=== PATIENT | male | born 1945 | race Caucasian/White ===

== ENCOUNTER → 2019-04-14 18:52 | Outpatient (CLI) | payer MEDICARE, BC | END | disposition home or self-care (01) | LOC: D.LABREF 18:52 | PROVIDERS: ATTEND Orthopaedic Surgery | DX: M17.11 Unilateral primary osteoarthritis, right knee (principal); Z11.8 Encounter for screening for other infectious and parasitic diseases ==

== ENCOUNTER 2019-04-15 12:24 | Inpatient (IN) | payer MEDICARE, BC ==
[~2019-04-15] VITALS: Ht 177.8 cm; Wt 158.8 kg
[2019-05-12] MEDS ORDERED: CARDURA4 MG PO (15:15)
[2019-05-12] MEDS ORDERED: NORMODYNE / TR200 MG PO (15:16)
[2019-05-12] MEDS ORDERED: GLIMEPIRIDE4 MG PO (15:16)
[2019-05-12] MEDS ORDERED: JANUVIA50 MG PO (15:16)
[2019-05-12] MEDS ORDERED: ZOCOR10 MG PO (15:17)
[2019-05-12] MEDS ORDERED: LISINOPRIL20 MG PO (15:17)
[2019-05-12] MEDS ORDERED: LANTUS SOL100 UNIT/1 SC (15:17)
[2019-05-12] MEDS ORDERED: VERAPAMIL ER P200 MG PO (15:18)
[2019-05-12] MEDS ORDERED: MAXZIDE 75/501 TAB PO (15:18)
[2019-05-12] MEDS ORDERED: ULTRAM50 MG PO (15:19)
[2019-05-12] MEDS ORDERED: MULTI-DAY VITAM1 TAB PO (15:32)
[2019-05-12] MEDS ORDERED: ASPIRIN EC81 M1 PO (15:32)
[2019-05-12] MEDS ORDERED: OMEGA-3100 MG PO (15:32)
[2019-05-13 11:17] LABS: BASOPHILS 0.1 % (0-2); EOSINOPHILS 1.6 % (0-7); HEMATOCRIT 40.8 % (42.0-54.0); HEMOGLOBIN 14.4 g/dL (13.5-17.5); IMMATURE GRANULOCYTES 0.3 % (0-5); LYMPHOCYTES 25.1 % (15-50); MCHC 35.3 g/dL (31.0-37.0); MCV 90.7 fL (80.0-100.0); MEAN PLATELET VOLUME 10.4 fL (7.4-10.4); MONOCYTES 9.7 % (2-11); NEUTROPHILS 63.2 % (40-80); PLATELET COUNT 209 10x3/uL (130-400); WBC 6.7 10x3/uL (4.8-10.8)
[2019-05-13 11:26] LABS: APPEARANCE CLEAR (CLEAR); COLOR STRAW (YELLOW)
[2019-05-13 11:27] LABS: BILIRUBIN NEGATIVE (NEGATIVE); GLUCOSE 100 mg/dL (NEGATIVE); KETONE NEGATIVE (NEGATIVE); NITRITE NEGATIVE (NEGATIVE); PROTEIN NEGATIVE (NEGATIVE); SPECIFIC GRAVITY 1.005 (1.005-1.020); UROBILINOGEN NORMAL (NORMAL)
[2019-05-13 11:27] LABS: CALCIUM 8.7 mg/dL (8.5-10.1); CARBON DIOXIDE 32.7 mmol/L (21.0-32.0); CREATININE - SERUM 1.7 mg/dL (0.6-1.3); POTASSIUM - SERUM 3.7 mmol/L (3.5-5.1)
[2019-05-13 11:37] LABS: APTT 31.6 SECONDS (22.8-39.4); INR 1.05 (0.85-1.17); PROTIME 13.2 SECONDS (11.6-15.0)
[2019-05-20 06:32] VITALS: BP 125/69; BMI 35.9
[2019-05-20 10:56] VITALS: BP 155/99
[2019-05-20 16:57] VITALS: BP 152/87
[2019-05-20 18:48] VITALS: BP 155/99; BMI 50.3
[2019-05-20 21:50] VITALS: BP 115/68
[2019-05-21 01:25] VITALS: BP 124/64
--- NOTE | 2019-05-21 05:00 | NUR ---
PT STILL HAS NOT VOIDED INSTRUCTED THAT REALLY NEED TO DO IN AND OUT CATH NOW STATES NO NOT GOING TO, DONT NEED TO GO IM JUST DRY. BLADDER SCAN DONE AGAIN SHOWED 393ML,
[2019-05-21 05:29] VITALS: BP 120/60
[2019-05-21 06:44] LABS: BASOPHILS 0.1 % (0-2); EOSINOPHILS 0 % (0-7); HEMATOCRIT 39.3 % (42.0-54.0); IMMATURE GRANULOCYTES 0.3 % (0-5); LYMPHOCYTES 9.3 % (15-50); MCHC 33.1 g/dL (31.0-37.0); MCV 93.8 fL (80.0-100.0); MEAN PLATELET VOLUME 10.8 fL (7.4-10.4); MONOCYTES 21.4 % (2-11); NEUTROPHILS 68.9 % (40-80); PLATELET COUNT 190 10x3/uL (130-400); RBC 4.19 10x6/uL (4.20-6.10); RDW 14.1 % (11.5-14.5); WBC 10.4 10x3/uL (4.8-10.8)
--- NOTE | 2019-05-21 06:54 | NUR ---
I have reviewed this patient and I concur with the Shift Assessment completed by the Licensed Practical Nurse today this shift.
[2019-05-21 07:07] LABS: ANION GAP 14.1 mmol/L (8-16); CALCIUM 8.1 mg/dL (8.5-10.1); CARBON DIOXIDE 26.3 mmol/L (21.0-32.0); CREATININE - SERUM 2.5 mg/dL (0.6-1.3); POTASSIUM - SERUM 4.4 mmol/L (3.5-5.1)
[2019-05-21 09:11] VITALS: BP 164/91
--- NOTE | 2019-05-21 10:30 | NUR ---
MORNING ASSESSMENT COMPLETE. SEE ASSESSMENT FLOWSHEET FOR FURTHER DETIALS. PT LYING IN BED AAO X4 TO PERSON, PLACE, TIME, AND SITUATION. DENIES FURTHER NEEDS AT THIS TIME. CL IN REACH. SIDE RAILS UP X3 FOR PT SAFETY. BED IN LOWEST POSITION. AT BEDSIDE.
[2019-05-21 10:45] VITALS: BMI 50.2
[2019-05-21 12:56] VITALS: BP 186/88
[2019-05-21 16:45] VITALS: BP 133/64
--- NOTE | 2019-05-21 20:00 | NUR ---
RESTING IN BED CPM IN USE, WOUND VAC DRESSING INTACT TO RIGHT KNEE, DENIES PAIN, URINAL GIVEN AND INSTRUCTED NEED TO TRY TO VOID HE HAS NOT VOIDED SINCE MAYS REMOVED AT 11AM, STATES I DONT NEED TO GO BUT I WILL TRY.
[2019-05-21 21:22] VITALS: BP 118/60
--- NOTE | 2019-05-21 23:30 | NUR ---
STILL HAS NOT VOIDED INSTRUCTED NEED TO DO IN AND OUT CATH STATES OH NO YOUR NOT, I DONT NEED TO GO YET. AGREED TO ALLOW BLADDER SCAN, SCANED 384ML. INSTRUCTED TO CONTINUE TO TRY AND USE URINAL,
[2019-05-22 01:15] VITALS: BP 110/58
[2019-05-22 04:50] LABS: BASOPHILS 0.1 % (0-2); EOSINOPHILS 0 % (0-7); HEMATOCRIT 32.8 % (42.0-54.0); HEMOGLOBIN 11.1 g/dL (13.5-17.5); IMMATURE GRANULOCYTES 0.3 % (0-5); MCH 31.3 pg (26.0-34.0); MCHC 33.8 g/dL (31.0-37.0); MCV 92.4 fL (80.0-100.0); MEAN PLATELET VOLUME 10.5 fL (7.4-10.4); MONOCYTES 14.8 % (2-11); NEUTROPHILS 77.8 % (40-80); RBC 3.55 10x6/uL (4.20-6.10); RDW 13.9 % (11.5-14.5)
[2019-05-22 04:57] LABS: PLATELET COUNT 143 10x3/uL (130-400); WBC 18.8 10x3/uL (4.8-10.8)
[2019-05-22 05:08] LABS: ALBUMIN 2.8 g/dL (3.4-5.0); ANION GAP 13.5 mmol/L (8-16); BILIRUBIN - TOTAL 1.55 mg/dL (0.2-1.3); CALCIUM 7.7 mg/dL (8.5-10.1); CARBON DIOXIDE 26.7 mmol/L (21.0-32.0); CREATININE - SERUM 3.5 mg/dL (0.6-1.3); POTASSIUM - SERUM 4.2 mmol/L (3.5-5.1); PROTEIN - SERUM 6.3 g/dL (6.4-8.2)
--- NOTE | 2019-05-22 06:00 | NUR ---
REQUESTED CPM BE REMOVED DUE TO HIP HURTING OFFERED TO GIVE DILAUDID FOR PAIN, REFUSED STATES JUST WANT THIS THING OFF, CPM REMOVED AFTER BEING ON FOR 15 MIN
[2019-05-22 06:04] VITALS: BP 105/52
--- NOTE | 2019-05-22 07:49 | NUR ---
PT RESTING IN BED WITH CPAP ON. EDUCATED PT ON SITTING UP ON SIDE OF BED AND NOT STAYING IN THE BED. ASSITED PT UP TO SIDE OF BED. NATHAN WONG I&O CATH PT DT NOT VOIDING SINCE YESTERDAY. 800 ML OF URINE NOTED. NATHAN BOX FSBS-60. ORANGE JUICE AND PEANUT BUTTER AND CRACKERS GIVEN. PT EATING AND DRINKING. DENIES PAIN. NO S/S OF ACUTE DISTRESS. CL IN PLACE. AT BEDSIDE
[2019-05-22 08:33] LABS: APPEARANCE SL CLDY (CLEAR); BILIRUBIN NEGATIVE (NEGATIVE); COLOR YELLOW (YELLOW); GLUCOSE 50 mg/dL (NEGATIVE); KETONE SMALL mg/dL (NEGATIVE); NITRITE NEGATIVE (NEGATIVE); PROTEIN 1+ mg/dL (NEGATIVE); SPECIFIC GRAVITY 1.015 (1.005-1.020); UROBILINOGEN NORMAL (NORMAL)
[2019-05-22 08:34] LABS: BACTERIA MODERATE /hpf (NONE SEEN); EPITHELIAL CELLS OCC /hpf (0-5); WHITE CELLS - URINE 0-5 /hpf (0-5)
[2019-05-22 08:35] LABS: AMORPHOUS SEDIMENT >1+ /lpf (NONE SEEN); GRANULAR CAST OCC /lpf (NONE SEEN); MUCUS <1+ /lpf (NONE SEEN)
[2019-05-22 08:40] VITALS: BP 117/49
[2019-05-22 12:03] VITALS: BP 103/58
--- NOTE | 2019-05-22 12:39 | NUR ---
BLADDER SCANNED 341. CALLED RENAL AND LEFT MESSAGE. PT HAS NO URGE TO URNIATE. NO S/S OF ACUTE DISTRESS. CL IN PLACE.
--- NOTE | 2019-05-22 13:03 | NUR ---
SPOKE WITH LUANNE KRISHNAMURTHY FOR RENAL WHO ORDERED CONSULT WITH DR CASAS, " IT SEEMS TO BE MORE OF A URNIARY ISSUE THAN RENAL." CALLED DR CASAS ABOUT CONSULT AND EXPLAINED THE PT WAS UNABLE TO VOID. TO FOR FC TO BE PLACED AND DR CASAS WILL BE BY TO SEE PT LATER. NO S/S OF ACUTE DISTRESS. CL IN PLACE.
[2019-05-22 13:35] VITALS: Ht 177.8 cm; Wt 158.8 kg
--- NOTE | 2019-05-22 13:36 | NUR ---
FC PLACED PER MD ORDER USING STERILE TECHNIQUE. 310 ML OF HENRY URINE NOTED IN BAD. NO S.S OF ACUTE DISTRESS. CL IN PLACE.
[2019-05-22 16:39] VITALS: BP 141/70
--- NOTE | 2019-05-22 19:05 | NUR ---
OXY 5 GIVEN PRIOR TO TRANSPORT. NO S/S OF ACUTE DISTRESS. LEFT WITH EMS AT 1840.
--- NOTE | 2019-05-22 19:11 | NUR ---
PT SITTING UP ON SIDE OF BED. REFUSED CPM. NO S/S OF ACUTE DISTRESS. CL IN PLACE.
--- NOTE | 2019-05-22 19:15 | NUR ---
RECIEVED CARE FROM DAY NURSE. LYING IN BED WITH CALL LIGHT AT SIDE. IV INFUSING TO RIGHT FA. NO NEEDS VOICED AT THIS TIME. MAYS TO GRAVITY. WOUND VAC TO RIGHT KNEE.
[2019-05-22 20:00] VITALS: BP 109/64
[2019-05-23] VITALS: BP 115/59
--- NOTE | 2019-05-23 03:00 | NUR ---
UP TO BSC. UNABLE TO HAVE BM BUT DID PASS A LARGE AMOUNT OF GAS.
--- NOTE | 2019-05-23 03:42 | NUR ---
I have reviewed this patient and I concur with the Shift Assessment completed by the Licensed Practical Nurse today this shift.
[2019-05-23 04:00] VITALS: BP 111/44
[2019-05-23 07:49] LABS: BASOPHILS 0.1 % (0-2); EOSINOPHILS 0.7 % (0-7); HEMATOCRIT 31.5 % (42.0-54.0); IMMATURE GRANULOCYTES 0.3 % (0-5); LYMPHOCYTES 8.7 % (15-50); MCH 31.5 pg (26.0-34.0); MCHC 34.9 g/dL (31.0-37.0); MEAN PLATELET VOLUME 10.1 fL (7.4-10.4); MONOCYTES 14.1 % (2-11); NEUTROPHILS 76.1 % (40-80); PLATELET COUNT 138 10x3/uL (130-400); RBC 3.49 10x6/uL (4.20-6.10); RDW 13.7 % (11.5-14.5); WBC 14.6 10x3/uL (4.8-10.8)
[2019-05-23 07:59] LABS: MCV 90.3 fL (80.0-100.0)
[2019-05-23 08:08] LABS: ALBUMIN 2.7 g/dL (3.4-5.0); ANION GAP 13.3 mmol/L (8-16); BILIRUBIN - TOTAL 1.11 mg/dL (0.2-1.3); CALCIUM 7.6 mg/dL (8.5-10.1); CARBON DIOXIDE 24.3 mmol/L (21.0-32.0); CREATININE - SERUM 3.3 mg/dL (0.6-1.3); POTASSIUM - SERUM 3.6 mmol/L (3.5-5.1); PROTEIN - SERUM 6.4 g/dL (6.4-8.2)
[2019-05-23 08:43] VITALS: BP 143/65
--- NOTE | 2019-05-23 09:16 | NUR ---
PT SITTING UP ON SIDE OF BED. ENCOURAGED PT TO USE I.S. EDUCATION GIVEN. "I UNDERSTAND" ENCOURAGED PT TO GET UP TO CHAIR TO TODAY. NO S/S OF ACUTE DISTRESS. CL IN PLACE.
[2019-05-23 12:32] VITALS: BP 169/87
[2019-05-23 16:59] VITALS: BP 143/80
--- NOTE | 2019-05-23 18:21 | NUR ---
PT RESTING IN BED. AT BEDSIDE. NO S/S OF ACUTE DISTRESS. CL IN PLACE.
--- NOTE | 2019-05-23 19:15 | NUR ---
RECIEVED CARE FROM DAY NURSE. LYING IN BED WITH CPAP IN PLACE. REPORTS NO NEEDS AT THIS TIME. CALL LIGHT AT SIDE. IV TO RIGHT FA INFUSING PER ORDER. MAYS TO GRAVITY.
[2019-05-23 20:40] VITALS: BP 141/64
--- NOTE | 2019-05-23 20:40 | NUR ---
IV IN RIGHT FA LEAKING. DC'D WITH TIP INTACT. RESITED TO RIGHT HAND. 22 GUAGE X1 STICK WITH GOOD BLOOD RETURN NOTED.
[2019-05-24 00:56] VITALS: BP 136/63
[2019-05-24 05:44] VITALS: BP 118/64
[2019-05-24 07:53] LABS: HEMATOCRIT 28.8 % (42.0-54.0); MCH 31.6 pg (26.0-34.0); MCHC 34.7 g/dL (31.0-37.0); MCV 91.1 fL (80.0-100.0); MEAN PLATELET VOLUME 11.2 fL (7.4-10.4); RBC 3.16 10x6/uL (4.20-6.10); RDW 14.4 % (11.5-14.5)
[2019-05-24 08:03] LABS: PLATELET COUNT 198 10x3/uL (130-400); WBC 10.3 10x3/uL (4.8-10.8)
[2019-05-24 08:21] LABS: EOSINOPHILS 1 % (0-7); LYMPHOCYTES 12 % (15-50); MONOCYTES 3 % (2-11); NEUTROPHILS 82 % (40-80); PLATELET ESTIMATE DECREASED
--- NOTE | 2019-05-24 08:29 | NUR ---
AAOX4. RESTING IN BED. ASSISTED PT UP WITH YOUTH CARE PROFESSIONAL AND RW TO CHAIR. PT CO OF PAIN 9/10 TO R HIP/KNEE. SHAKY, UNSTEADY GAIT NOTED. AT BEDSIDE. NO S/S OF ACUTE DISTRESS. CL IN PLACE.
[2019-05-24 09:53] LABS: ALBUMIN 2.5 g/dL (3.4-5.0); ANION GAP 12.5 mmol/L (8-16); BILIRUBIN - TOTAL 1.18 mg/dL (0.2-1.3); CALCIUM 7.8 mg/dL (8.5-10.1); CARBON DIOXIDE 26.5 mmol/L (21.0-32.0); CREATININE - SERUM 2.6 mg/dL (0.6-1.3); PROTEIN - SERUM 6.2 g/dL (6.4-8.2)
[2019-05-24 10:25] VITALS: BP 134/59
[2019-05-24 15:42] VITALS: BP 127/54
--- NOTE | 2019-05-24 18:04 | NUR ---
PT SITTING UP ON SIDE OF BED."NOT TOO CRAZY ABOUT THE FOOD". AT BEDSIDE. NO S/S OF ACUTE DISTRESS. CL IN PLACE.
--- NOTE | 2019-05-24 19:15 | NUR ---
RECEIVED CARE FROM DAY NURSE. SITTING UP ON SIDE OF BED. NO NEEDS VOICED AT THIS TIME. CALL LIGHT AT SIDE. IV INFUSING PER ORDER TO RIGHT HAND. MAYS TO GRAVITY. PREVENA WOUND VAC TO RIGHT KNEE.
[2019-05-24 21:22] VITALS: BP 155/71
[2019-05-25 01:06] VITALS: BP 118/48
--- NOTE | 2019-05-25 01:46 | NUR ---
I have reviewed this patient and I concur with the Shift Assessment completed by the Licensed Practical Nurse today this shift.
[2019-05-25 04:56] VITALS: BP 147/65
[2019-05-25 05:14] LABS: BASOPHILS 0.1 % (0-2); EOSINOPHILS 2.7 % (0-7); HEMATOCRIT 28.8 % (42.0-54.0); HEMOGLOBIN 9.8 g/dL (13.5-17.5); IMMATURE GRANULOCYTES 0.5 % (0-5); LYMPHOCYTES 9.5 % (15-50); MCH 30.8 pg (26.0-34.0); MCV 90.6 fL (80.0-100.0); MEAN PLATELET VOLUME 10.3 fL (7.4-10.4); MONOCYTES 19.9 % (2-11); NEUTROPHILS 67.3 % (40-80); PLATELET COUNT 191 10x3/uL (130-400); RBC 3.18 10x6/uL (4.20-6.10); RDW 13.3 % (11.5-14.5)
[2019-05-25 05:45] LABS: ALBUMIN 2.4 g/dL (3.4-5.0); ANION GAP 11.7 mmol/L (8-16); BILIRUBIN - TOTAL 1.17 mg/dL (0.2-1.3); CALCIUM 8.2 mg/dL (8.5-10.1); CARBON DIOXIDE 27.3 mmol/L (21.0-32.0); CREATININE - SERUM 2.2 mg/dL (0.6-1.3); PROTEIN - SERUM 6.1 g/dL (6.4-8.2)
--- NOTE | 2019-05-25 09:00 | NUR ---
[facility] AT [facility]
[2019-05-25] MEDS ORDERED: VIBRAMYCIN 100100 MG PO (09:59)
[2019-05-25] MEDS ORDERED: MIRALAX17 GM PO (10:00)
[2019-05-25 10:15] VITALS: BP 114/61
--- NOTE | 2019-05-25 11:13 | NUR ---
MORNING ASSESSMENT COMPLETE. SEE ASSESSMENT FLOWSHEET FOR FURTHER DETAILS. PT LYING IN BED AAO X4 TO [place], PLACE, TIME, AND SITUATION. DENIES NEEDS AT THSI TIME. CL IN REACH. SIDE RAILS UP X3 FOR PT SAFETY. BED IN LOWEST POSITION
--- NOTE | 2019-05-25 11:15 | NUR ---
GIVEN REPORT TO NATHAN LAURENT
--- NOTE | 2019-05-25 12:02 | MORECARE ---
CASE MANAGEMENT DISCHARGE SUMMARY PATIENT: ANDREW COOPER UNIT: [id number] ADM DATE: 05/20/19 AGE: 73 : 45 SEX: M ROOM/BED: D.2209 AUTHOR: ADRIANA LOVE PHYSICIAN: REFERRING PHYSICIAN: LENY ROBERTSON MD DATE OF SERVICE: 05/25/19 Discharge Plan Patient Name: ANDREW COOPER [facility] [facility] 1945 Planned Disposition: Home Health Service Anticipated Discharge Date: 05/25/19 Discharge Date: Expected LOS: 5 Initial Reviewer: [email or web address] Initial Review Date: 05/25/2019 Generated: 05/25/19 1:02 pm DCPIA - Discharge Planning Initial Assessment Updated by [email or web address]: Shayla Ndiaye on 05/25/19 12:01 pm * Is the patient Alert and Oriented? Yes * PCP P[facility]OT * [facility] * Preadmission Environment Home with Family * ADLs Independent * List name and contact numbers for known caregivers / representatives who currently or will assist patient after discharge: SUKUMAR TORRES, * Community resources currently utilized Home Health * Please name any agencies selected above. [place] BUT DOESNT KNOW NAME * Additional services required to return to the preadmission environment? Yes * Can the patient safely return to the preadmission environment? No * Has this patient been hospitalized within the prior 30 days at any hospital? Yes Patient Name: ANDREW COOPER Page [id number] at 1202 All edits/amendments must be made on the electronic document DICTATION DATE: 05/25/19 1202 TUBE PUSHER: MONROE 05/25/19 1202 RPT#: [id number] DC DATE: STATUS: ADM IN [facility] [address] [place] [address] END OF REPORT
--- NOTE | 2019-05-25 12:10 | MORECARE ---
CASE MANAGEMENT DISCHARGE SUMMARY PATIENT: ANDREW COOPER UNIT: [id number] ADM DATE: 05/20/19 AGE: 73 : 45 SEX: M ROOM/BED: D.2209 AUTHOR: ADRIANA LOVE PHYSICIAN: REFERRING PHYSICIAN: LENY ROBERTSON MD DATE OF SERVICE: 05/25/19 Discharge Plan Patient Name: ANDREW COOPER Facility: [facility]:[place] : 1945 Planned Disposition: Home Health Service Anticipated Discharge Date: 05/25/19 Discharge Date: Expected LOS: 5 Initial Reviewer: [email or web address] Initial Review Date: 05/25/2019 Generated: 05/25/19 1:09 pm Comments DCP- Discharge Planning Updated by [email or web address]: Shayla Ndiaye on 05/25/19 11:[address] Patient Name: ANDREW COOPER Admission Status: Elective Accout number: [id number] Admission Date: 05-20-2019 : 1945 Admission Diagnosis:UNILATERAL PRIMARY OSTEOARTHRITIS, RIGHT KNEE Attending: LENY ROBERTSON Current LOS: 5 Anticipated DC Date: 05-25-2019 Planned Disposition: Home Health Service Primary Insurance: MEDICARE A & B Discharge Planning Comments: CM MET WITH PATIENT ABOUT DC PLANNING/NEEDS. [facility] HAS HH BUT DOESN'T REMEMBER NAME. I WILL TRY TO FIND OUT, IF NOT SUCCESSFUL [facility] FOR [place] [employer] FOR DME. [facility] NEEDS WHEEL CHAIR AND BUCKET FOR BEDSIDE COMODE. CM WILL FAX DOCUMENTS OVER. I WILL FOLLOW AND ASSIST NEEDED. Talent Director: Shayla Ndiaye DCPIA - Discharge Planning Initial Assessment Updated by [id number]: Shayla Ndiaye on 05/25/19 12:01 pm * Is the patient Alert and Oriented? Yes * PCP PARROT * [facility] * Preadmission Environment Home with Family * ADLs Independent * List name and contact numbers for known caregivers / representatives who currently or will assist patient after discharge: BRIAN, SUKUMAR, * Community resources currently utilized Home Health * Please name any agencies selected above. [facility] BUT DOESNT KNOW NAME * Additional services required to return to the preadmission environment? Yes * Can the patient safely return to the preadmission environment? No * Has this patient been hospitalized within the prior 30 days at any hospital? Yes External Providers External Provider: [facility] Next Contact Date: Service Request Date: Service Type: Resolution: Reviewer: Comments: [facility] Next Contact Date: Service Request Date: Service Type: Resolution: Reviewer: Comments: Last DP export: 05/25/19 11:02 am Patient Name: ANDREW COOPER Page [phone] at 1210 All edits/amendments must be made on the electronic document DICTATION DATE: 05/25/19 120 DIRECTOR SOCIAL WELFARE: MONROE 05/25/19 1209 RPT#: [id number] DC DATE: STATUS: ADM IN [facility] [address] [place] [address] END OF REPORT
[2019-05-25 12:28] VITALS: BP 128/62
--- NOTE | 2019-05-25 13:54 | MORECARE ---
CASE MANAGEMENT DISCHARGE SUMMARY PATIENT: ANDREW COOPER UNIT: [id number] ADM DATE: 05/20/19 AGE: 73 : 45 SEX: M ROOM/BED: D.2209 AUTHOR: ADRIANA LOVE PHYSICIAN: REFERRING PHYSICIAN: LENY ROBERTSON MD DATE OF SERVICE: 05/25/19 Discharge Plan Patient Name: ANDREW COOPER Facility: [facility]:[place] : 1945 Planned Disposition: Home Health Service Anticipated Discharge Date: 05/25/19 Discharge Date: Expected LOS: 5 Initial Reviewer: [email or web address] Initial Review Date: 05/25/2019 Generated: 05/25/19 2:54 pm Comments DCP- Discharge Planning Updated by [id number]: Shayla Ndiaye on 05/25/19 11:[address] Patient Name: ANDREW COOPER Admission Status: Elective Accout number: [id number] Admission Date: 05-20-2019 : 1945 Admission Diagnosis:UNILATERAL PRIMARY OSTEOARTHRITIS, RIGHT KNEE Attending: LENY ROBERTSON Current LOS: 5 Anticipated DC Date: 05-25-2019 Planned Disposition: Home Health Service Primary Insurance: MEDICARE A & B Discharge Planning Comments: CM MET WITH PATIENT ABOUT DC PLANNING/NEEDS. [facility] HAS HH BUT DOESN'T REMEMBER NAME. I WILL TRY TO FIND OUT, IF NOT SUCCESSFUL [facility] FOR [place] [employer] FOR DME. [facility] NEEDS WHEEL CHAIR AND BUCKET FOR BEDSIDE COMODE. CM WILL FAX DOCUMENTS OVER. I WILL FOLLOW AND ASSIST NEEDED. Die Sinker Apprentice: Shayla Ndiaye DCPIA - Discharge Planning Initial Assessment Updated by [id number]: Shayla Ndiaye on 05/25/19 12:01 pm * Is the patient Alert and Oriented? Yes * PCP PARROT * [facility] * Preadmission Environment Home with Family * ADLs Independent * List name and contact numbers for known caregivers / representatives who currently or will assist patient after discharge: BRIAN, SUKUMAR, * Community resources currently utilized Home Health * Please name any agencies selected above. [facility] BUT DOESNT KNOW NAME * Additional services required to return to the preadmission environment? Yes * Can the patient safely return to the preadmission environment? No * Has this patient been hospitalized within the prior 30 days at any hospital? Yes External Providers External Provider: [facility] Next Contact Date: Service Request Date: Service Type: Resolution: Reviewer: Comments: External Provider: [facility] Next Contact Date: Service Request Date: Service Type: Resolution: Reviewer: Comments: Coverage Notice Reviewer: [email or web address] Ndiaye Notice Issued Date-Time: 05/25/2019 12:25 Notice Type: IM Discharge Notice Notice Delivered To: Patient Relationship to Patient: Critical Care Technician Name: Delivery Method: HAND - Hand Delivered Nan Days: Prior Verbal Notification: Recipient Understood Notice: Yes Recipient Signature: Yes Med Rec Note Co-signed by Attending: Coverage Notice Comment: Reviewer: [id number] Ndiaye Notice Issued Date-Time: 05/25/2019 12:25 Notice Type: Patient Choice Letter Notice Delivered To: Patient Relationship to Patient: Self Critical Care Technician Name: Delivery Method: HAND - Hand Delivered Nan Days: Prior Verbal Notification: Recipient Understood Notice: Yes Recipient Signature: Yes Med Rec Note Co-signed by Attending: Coverage Notice Comment: JULIO HAY Last DP export: 05/25/19 11:09 am Patient Name: ANDREW COOPER Page [phone] at 1354 All edits/amendments must be made on the electronic document DICTATION DATE: 05/25/19 1354 SIGN LETTERER: MONROE 05/25/19 1354 RPT#: [id number] DC DATE: STATUS: ADM IN [facility] [address] [place] [address] END OF REPORT
[2019-05-25 17:30] VITALS: BP 143/72
[2019-05-25 20:31] VITALS: BP 158/77
--- NOTE | 2019-05-25 21:00 | NUR ---
FSBS 173 5 INITS OF LANTUS GIVEN PER JAN PT REFUSED SS.
--- NOTE | 2019-05-25 21:45 | NUR ---
PT RESTING IN BED. ALERT AND ORIENTED. NO SIGNS OF DISTRESS. BREATHING EVEN AND UNLABORED. PT STATES NO PROBLEMS AT THIS TIME. BED LOWERED AND LOCKED. CALL LIGHT IN REACH. WILL CONTINUE PLAN OF CARE.
[2019-05-26 00:15] VITALS: BP 150/64
[2019-05-26 05:08] VITALS: BP 131/63
[2019-05-26 06:06] LABS: BASOPHILS 0.1 % (0-2); EOSINOPHILS 2.4 % (0-7); HEMATOCRIT 30.3 % (42.0-54.0); HEMOGLOBIN 10.2 g/dL (13.5-17.5); IMMATURE GRANULOCYTES 0.5 % (0-5); LYMPHOCYTES 12.2 % (15-50); MCH 30.5 pg (26.0-34.0); MCHC 33.7 g/dL (31.0-37.0); MCV 90.7 fL (80.0-100.0); MEAN PLATELET VOLUME 9.8 fL (7.4-10.4); MONOCYTES 19.3 % (2-11); NEUTROPHILS 65.5 % (40-80); PLATELET COUNT 209 10x3/uL (130-400); RBC 3.34 10x6/uL (4.20-6.10); RDW 13.3 % (11.5-14.5); WBC 9.2 10x3/uL (4.8-10.8)
[2019-05-26 06:07] LABS: ALBUMIN 2.6 g/dL (3.4-5.0); ANION GAP 10.7 mmol/L (8-16); BILIRUBIN - TOTAL 1.21 mg/dL (0.2-1.3); CALCIUM 8.2 mg/dL (8.5-10.1); CARBON DIOXIDE 28.3 mmol/L (21.0-32.0); PROTEIN - SERUM 6.3 g/dL (6.4-8.2)
--- NOTE | 2019-05-26 06:45 | NUR ---
I have reviewed this patient and I concur with the Shift Assessment completed by the Licensed Practical Nurse today this shift.
--- NOTE | 2019-05-26 06:54 | NUR ---
FSBS 166 PT REFUSED SS. STATED HE IS GOING HOME TODAY AND WILL GET BACK ON HIS REGULAR ORAL MEDICATIONS. THAT HE DOES NOT DO SS AT HOME.
[2019-05-26] MEDS ORDERED: HYDROCODON-ACE1 EAC2 PO (08:27)
[2019-05-26 09:13] VITALS: BP 155/63
--- NOTE | 2019-05-26 10:12 | NUR ---
MORNING ASSESSMENT COMPLETE. SEE ASSESSMENT FLOWSHEET FOR FURTHER DETAILS. PT LYING IN BED AAO X4 TO PERSON, PLACE, TIME, AND SITUATION. DENIES NEEDS AT THIS TIME. CL IN REACH. SIDE RAILS UP X3 FOR PT SAFETY. AT BEDSIDE. BED IN LOWEST POSITION.
--- NOTE | 2019-05-26 12:28 | NUR ---
PT D/C HOME. LEFT FLOOR VIA W/C. WENT OVER ALL D/C INSTRUCTIONS- PT STATES UNDERSTANDING. LEFT WITH ALL PERSONAL BELONGINGS.
--- NOTE | 2019-05-26 17:33 | MORECARE ---
CASE MANAGEMENT DISCHARGE SUMMARY PATIENT: ANDREW COOPER UNIT: [id number] ADM DATE: 05/20/19 AGE: 73 : 45 SEX: M ROOM/BED: D.2209 AUTHOR: ADRIANA LOVE PHYSICIAN: REFERRING PHYSICIAN: LENY ROBERTSON MD DATE OF SERVICE: 05/26/19 Discharge Plan Patient Name: ANDREW COOPER Facility: [facility]:[place] : 1945 Planned Disposition: Home Health Service Anticipated Discharge Date: 05/25/19 Discharge Date: 05/26/2019 Expected LOS: 5 Initial Reviewer: [email or web address] Initial Review Date: 05/25/2019 Generated: 05/26/19 6:33 pm Comments DCP- Discharge Planning Updated by [id number]: Shayla Ndiaye on 05/25/19 11:[address] Patient Name: ANDREW COOPER Admission Status: Elective Accout number: [id number] Admission Date: 05-20-2019 : 1945 Admission Diagnosis:UNILATERAL PRIMARY OSTEOARTHRITIS, RIGHT KNEE Attending: LENY ROBERTSON Current LOS: 5 Anticipated DC Date: 05-25-2019 Planned Disposition: Home Health Service Primary Insurance: MEDICARE A & B Discharge Planning Comments: CM MET WITH PATIENT ABOUT DC PLANNING/NEEDS. [facility] HAS HH BUT DOESN'T REMEMBER NAME. I WILL TRY TO FIND OUT, IF NOT SUCCESSFUL [facility] FOR [employer] FOR DME. [facility] NEEDS WHEEL CHAIR AND BUCKET FOR BEDSIDE COMODE. CM WILL FAX DOCUMENTS OVER. I WILL FOLLOW AND ASSIST NEEDED. Input Output Clerk: Shayla Ndiaye DCPIA - Discharge Planning Initial Assessment Updated by [email or web address]: Shayla Ndiaye on 05/25/19 12:01 pm * Is the patient Alert and Oriented? Yes * PCP PARROT * [facility] * Preadmission Environment Home with Family * ADLs Independent * List name and contact numbers for known caregivers / representatives who currently or will assist patient after discharge: SUKUMAR TORRES, * Community resources currently utilized Home Health * Please name any agencies selected above. [facility] BUT DOESNT KNOW NAME * Additional services required to return to the preadmission environment? Yes * Can the patient safely return to the preadmission environment? No * Has this patient been hospitalized within the prior 30 days at any hospital? Yes Coverage Notice Reviewer: [email or web address] Jeromy Ndiaye Notice Issued Date-Time: 05/25/2019 12:25 Notice Type: IM Discharge Notice Notice Delivered To: Patient Relationship to Patient: Exercise Equipment Repair Technician Name: Delivery Method: HAND - Hand Delivered Nan Days: Prior Verbal Notification: Recipient Understood Notice: Yes Recipient Signature: Yes Med Rec Note Co-signed by Attending: Coverage Notice Comment: Reviewer: [email or web address] Jeromy Ndiaye Notice Issued Date-Time: 05/25/2019 12:25 Notice Type: Patient Choice Letter Notice Delivered To: Patient Relationship to Patient: Self Exercise Equipment Repair Technician Name: Delivery Method: HAND - Hand Delivered Nan Days: Prior Verbal Notification: Recipient Understood Notice: Yes Recipient Signature: Yes Med Rec Note Co-signed by Attending: Coverage Notice Comment: JULIO Fu DP export: 05/25/19 12:54 pm Patient Name: ANDREW COOPER Page [phone] at 1733 All edits/amendments must be made on the electronic document DICTATION DATE: 05/26/191732 PANTRY GOODS MAKER: MONROE 05/26/191732 RPT#: [id number] DC DATE:05/26/19 STATUS: DIS IN [facility] [address] [place] [address] END OF REPORT
== END 2019-05-26 12:28 | disposition home health service (06) | DRG 469 ==
LOC: D.SDCHOLD 05-13 10:00 → D.MS 05-20 05:15 → D.SDCHOLD 05-20 05:15 → D.MS 05-20 10:38
PROVIDERS: Family Medicine; ADMIT Orthopaedic Surgery; ATTEND Orthopaedic Surgery
PROC: 0SRC0J9 Replacement of Right Knee Joint with Synthetic Substitute, Cemented, Open Approach (ICD-10-PCS; principal; 2019-05-20 07:30)
DX: M17.11 Unilateral primary osteoarthritis, right knee (principal); N17.1 Acute kidney failure with acute cortical necrosis; N17.9 Acute kidney failure, unspecified; F17.213 Nicotine dependence, cigarettes, with withdrawal; Z68.43 Body mass index [BMI] 50.0-59.9, adult; N39.0 Urinary tract infection, site not specified; E11.69 Type 2 diabetes mellitus with other specified complication; I12.9 Hypertensive chronic kidney disease with stage 1 through stage 4 chronic kidney disease, or unspecified chronic kidney disease; E11.22 Type 2 diabetes mellitus with diabetic chronic kidney disease; N18.9 Chronic kidney disease, unspecified; E66.01 Morbid (severe) obesity due to excess calories